=== PATIENT | male | born 1980 | race Caucasian/White ===

== ENCOUNTER 2020-03-15 11:00 | Outpatient (RCR) | payer BC ==
[~2020-03-15] VITALS: Ht 175.3 cm; Wt 86.4 kg
[2020-03-15] MEDS ORDERED: METO50TA7 PO (11:48)
== END 2020-03-15 12:45 | disposition home or self-care (01) ==
LOC: PREOP 11:00
PROVIDERS: ATTEND Otolaryngology Otolaryngology/Facial Plastic Surgery
DX: Z01.818 Encounter for other preprocedural examination (principal)

== ENCOUNTER 2020-03-19 06:52 | Day surgery (SDC) | payer BC ==
[~2020-03-19] VITALS: Ht 175.3 cm; Wt 86.4 kg
[2020-03-19] VITALS (11 sets, daily range): BP systolic 94–129; BP diastolic 68–88
[~2020-03-19 06:52] MED LIST: METO50TA7 PO
[2020-03-19] MEDS: LACTATED RINGERS 1,000 ML IV PRN ×2 (07:28→10:52)
[2020-03-19] MEDS ORDERED: LIDOCAINE/EPI 1%-1:100,000 (XYLOCAINE) 20ML ONE (08:34)
[2020-03-19] MEDS ORDERED: fentaNYL INJECTION 100 MCG/2 ML AMP ONE (08:45)
[2020-03-19] MEDS ORDERED: LIDOCAINE PF 2% 5 ML (XYLOCAINE) VIAL ONE (08:47)
[2020-03-19] MEDS ORDERED: proPOfol 200 MG/20 ML (DIPRIVAN) VIAL IV ONE (08:47)
[2020-03-19] MEDS ORDERED: MIDAZOLAM 2 MG/2 ML (VERSED) VIAL ONE (08:48)
--- NOTE | 2020-03-19 09:11 | Progress Note-Pre Operative ---
Pre-Operative Progress Note H&P Reviewed The H&P was reviewed, patient examined and no changes noted. Date Seen by Provider: Mar 19, 2020 Time Seen by Provider: 09:00 Date H&P Reviewed: Mar 19, 2020 Time H&P Reviewed: 09:00 Pre-Operative Diagnosis: Right Tongue Mass TEREZA HEREDIA MD Mar 19, 2020 09:11
[2020-03-19] MEDS ORDERED: ONDANSETRON 4 MG/2 ML (SDV) Z0FRAN ONE (09:14)
[2020-03-19] MEDS ORDERED: ROCURONIUM 10 MG/ML 5 ML SYRINGE IV ONE (09:14)
[2020-03-19] MEDS ORDERED: SEVOFLURANE (ULTANE) 15 ML INHAL SOLN ONE (09:14)
[2020-03-19] MEDS ORDERED: NEOSTIGMINE 3 MG/3 ML VIAL ONE (09:56)
[2020-03-19] MEDS ORDERED: GLYCOPYRROLATE 0.2 MG/ML (ROBINUL) 2 ML VIAL ONE (09:56)
--- NOTE | 2020-03-19 10:13 | Anesthesia-General Post-Op ---
General Patient Condition Mental Status/LOC: Same as Preop Cardiovascular: Satisfactory Nausea/Vomiting: Absent Respiratory: Satisfactory Pain: Controlled Complications: Absent Post Op Complications Complications None Follow Up Care/Instructions Patient Instructions None needed. Anesthesia/Patient Condition Patient Condition Patient is doing well, no complaints, stable vital signs, no apparent adverse anesthesia problems. No complications reported per nursing. MICHELE STEPHENSON CRNA Mar 19, 2020 10:13
[2020-03-19] MEDS ORDERED: morphine INJ 10 MG/ML 1ML (SYR OR VIAL) IVP ONE (10:15)
[2020-03-19] MEDS ORDERED: ONDANSETRON 4 MG/2 ML (SDV) Z0FRAN IVP PRN (10:15)
[2020-03-19] MEDS ORDERED: MEPERIDINE (DEMEROL) INJ 50 MG/ML IVP ONE (10:15)
[2020-03-19] MEDS ORDERED: ACHD5005 PO (12:13)
[2020-03-19] MEDS ORDERED: 2% VISCOUS XYLOCAINE PO (12:13)
== END 2020-03-19 12:40 | disposition home or self-care (01) ==
LOC: SDC 06:52
PROVIDERS: ATTEND Otolaryngology Otolaryngology/Facial Plastic Surgery
DX: K13.5 Oral submucous fibrosis (principal); I10 Essential (primary) hypertension; Z79.899 Other long term (current) drug therapy; Z87.891 Personal history of nicotine dependence
CPT/HCPCS: 87081